=== PATIENT | female | born 1970 | race Caucasian/White ===

== ENCOUNTER 2016-08-25 16:22 | Emergency (ER) | payer OTHER ==
--- NOTE | 2016-08-25 16:31 | UCPHY ---
H & P Patient Type: New HPI/ROS: HPI CHIEF COMPLAINT: Hypertension, headache, nausea HISTORY OF PRESENT ILLNESS: This patient very pleasant 45-year-old female significant past medical history for multiple abdominal surgeries from trauma, GERD, remote history of hypertension however does not take any blood pressure medication given she had a weight loss, weight loss and no longer takes blood pressure medication. She presents urgent care after she had a EGD earlier. Reason for presentation is hypertension. Patient was seen by her primary care doctor earlier today she had a documented blood pressure 120s /80s there. This is a 9:00 a.m. appointment she has make an appointment due to intermittent nighttime headaches. She was given a p.r.n. headache medication which she did not take. She then went to her EGD appointment at 3 o'clock she had a successful EGD but was noted that she was hypertensive pre procedure and worsening hypertension after procedure. It Is documented a blood pressure was in the 190s/120s diastolic. Patient denies chest pain or shortness of breath she does complain of a headache. She does tell me that she is very hungry she has been fasting all day for the EGD. She does have nausea. She denies fever, neck pain, chest pain, shortness of breath, abdominal pain. Of note upon arrival here in the Urgent Care blood pressure is 170 systolic over 110 diastolic. She is telling me she is very hungry. She has a frontal throbbing headache. Normal neurological exam Past Medical History: GERD, headaches Past Surgical History: Multiple abdominal surgeries including cholecystectomy, appendectomy, splenic surgery due to trauma, bowel removal due to trauma Social History: Denies daily drug use alcohol tobacco Family History: Noncontributory ROS REVIEW OF SYSTEMS: A comprehensive 10 point review of systems is otherwise negative aside from elements mentioned in the history of present illness. Exam Constitutional appears well nontoxic triage nursing summary reviewed, vital signs reviewed, awake/alert. Vital signs reviewed hypertensive. Eyes normal conjunctivae and sclera, EOMI, PERRLA. HENT normal inspection, atraumatic, moist mucus membranes, no epistaxis, neck supple/ no meningismus, no raccoon eyes. Respiratory clear to auscultation bilaterally, normal breath sounds, no respiratory distress, no wheezing. Cardiovascular rate normal, regular rhythm, no murmur, no edema, distal pulses normal. Gastrointestinal soft, non-tender, no rebound, no guarding, normal bowel sounds, no distension, no pulsatile mass. Genitourinary no CVA tenderness. Musculoskeletal no midline vertebral tenderness, full range of motion, no calf swelling, no tenderness of extremities, no meningismus, good pulses, neurovascularly intact. Skin pink, warm, & dry, no rash, skin atraumatic. Neurologic awake, alert and oriented x 3, AAOx3, moves all 4 extremities equally, motor intact, sensory intact, CN II-XII intact, normal cerebellar, normal vision, normal speech. Psychiatric normal mood/affect. Heme/Lymph/Immune no lymphadenopathy. Differential Diagnosis: Includes but is not limited to in a particular order hypertensive urgency hypertensive emergency, dehydration, fasting causing headache causing hypertension, medication adverse effect. Medical Decision Making: Plan for this patient IV will be established be gently hydrated with IV fluids, I will allow her to eat as she has been fasting all day and has a headache this may be contributing to her hypertension, she will have a CT scan of her head to make sure she does not have an acute bleed leading to headache leading to hypertension. Check blood work including kidney function. Placed on full equipment monitor phototypesetting, troponin, EKG. Re-evaluation: EKG interpretation by me on record in [facility] system. Impression time of EKG 1646, this is sinus rhythm rate of 82, no acute ischemic changes specifically no ST elevation, ST depression, T-wave abnormalities. Prolonged intervals. Unremarkable EKG. 3: Re-evaluation at this time patient is feeling better. Blood pressure has improved. Having ongoing nausea from EGD. Repeat Zofran has been order, 2nd IV fluid bolus. No chest pain. Headache improved. CT scan of the head without IV contrast The results of the study are negative for acute intracranial abnormality specifically no bleed The study was read by Dr. Jonathan Bansal I viewed the images myself on the PACS system. 9: Re-evaluation at this time. She is feeling better however having ongoing nausea. She has received a mg total IV Zofran. Phenergan is not available. I have ordered her 10 mg IV Reglan 50 mg IV Benadryl. She is getting 2nd L fluid at this time. No active vomiting. Headache is improved. Unremarkable neuro exam. Blood pressure is improving currently 159/104. 2027: re-evaluation this time this patient feels much better she was requesting be discharged home. Did recommend she takes close monitor her blood pressure this next week. Return to Urgent Care emergency room she develops any worsening symptoms including chest pain, shortness of breath, headache. Stay well-hydrated. I do recommend also she follows up with the primary care doctor and gets restarted on her hypertension medication if she consistently has high blood pressure. Repeat troponin negative. Patient agreeable for discharge feels well requesting go home. Source: Patient - Family History Significant Family History: No pertinent family hx Constitutional: Initial Vital Signs Temperature (C) 36.3 C 08/25/16 16:36 Heart Rate 87 08/25/16 16:36 Respiratory Rate 18 08/25/16 16:36 Blood Pressure 167/104 H 08/25/16 16:36 O2 Sat (%) 93 08/25/16 16:36 O2 Delivery Mode Room Air Allergies/Adverse Reactions: No Known Allergies Allergy (Unverified 09/07/10 21:29) Home Medications: Medication Instructions Recorded Bupropion HCl 08/25/16 DEXILANT 08/25/16 Medical Decision Making - Data Points Laboratory Results: Laboratory Results 08/25/16 17:00 08/25/16 17:00 08/25/16 08/25/16 08/25/16 19:50 17:00 17:00 WBC RBC Hgb Hct MCV MCH MCHC RDW Plt Count MPV Neut % (Auto) Lymph % (Auto) [place] % (Auto) Eos % (Auto) Baso % (Auto) Nucleat RBC Rel Count Absolute Neuts (auto) Absolute Lymphs (auto) Absolute Monos (auto) Absolute Eos (auto) Absolute Basos (auto) Absolute Nucleated RBC Immature Gran % Immature Gran # PT 12.4 SEC SEC (12.0-15.0) INR 0.95 (0.83-1.16) APTT 30.3 SEC SEC (23.0-38.0) Sodium 140 mEq/L mEq/L (134-144) Potassium 3.5 mEq/L mEq/L (3.5-5.2) Chloride 102 mEq/L mEq/L (97-110) Carbon Dioxide 23 mEq/l mEq/l (22-31) Anion Gap 15 mEq/L mEq/L (8-16) BUN 10 mg/dL mg/dL (7-23) Creatinine 0.7 mg/dL mg/dL (0.6-1.0) Estimated GFR > 60 Glucose 86 mg/dL mg/dL (70-100) Calcium 9.0 mg/dL mg/dL (8.5-10.4) Magnesium 1.9 mg/dL mg/dL (1.6-2.3) Total Bilirubin 0.8 mg/dL mg/dL (0.1-1.4) Conjugated Bilirubin 0.2 mg/dL mg/dL (0.0-0.5) Unconjugated Bilirubin 0.6 mg/dL mg/dL (0.0-1.1) AST 20 IU/L IU/L (14-46) ALT 34 IU/L IU/L (9-52) Alkaline Phosphatase 76 IU/L IU/L (38-126) Troponin I < 0.012 ng/mL ng/mL < 0.012 ng/mL ng/mL (0-0.034) (0-0.034) NT-Pro-B Natriuret Pep 39 pg/mL pg/mL (0-125) Total Protein 7.6 g/dL g/dL (6.3-8.2) Albumin 3.9 g/dL g/dL (3.5-5.0) Lipase 74.0 IU/L IU/L (23-300) 08/25/16 17:00 WBC 8.53 10^3/uL 10^3/uL (3.80-9.50) RBC 4.85 10^6/uL 10^6/uL (4.18-5.33) Hgb 14.6 g/dL g/dL (12.6-16.3) Hct 42.0 % % (38.0-47.0) MCV 86.6 fL fL (81.5-99.8) MCH 30.1 pg pg (27.9-34.1) MCHC 34.8 g/dL g/dL (32.4-36.7) RDW 13.9 % % (11.5-15.2) Plt Count 237 10^3/uL 10^3/uL (150-400) MPV 10.5 fL fL (8.7-11.7) Neut % (Auto) 66.1 % % (39.3-74.2) Lymph % (Auto) 26.3 % % (15.0-45.0) [place] % (Auto) 5.9 % % (4.5-13.0) Eos % (Auto) 0.9 % % (0.6-7.6) Baso % (Auto) 0.4 % % (0.3-1.7) Nucleat RBC Rel Count 0.0 % % (0.0-0.2) Absolute Neuts (auto) 5.65 10^3/uL 10^3/uL (1.70-6.50) Absolute Lymphs (auto) 2.24 10^3/uL 10^3/uL (1.00-3.00) Absolute Monos (auto) 0.50 10^3/uL 10^3/uL (0.30-0.80) Absolute Eos (auto) 0.08 10^3/uL 10^3/uL (0.03-0.40) Absolute Basos (auto) 0.03 10^3/uL 10^3/uL (0.02-0.10) Absolute Nucleated RBC 0.00 10^3/uL 10^3/uL (0-0.01) Immature Gran % 0.4 % % (0.0-1.1) Immature Gran # 0.03 10^3/uL 10^3/uL (0.00-0.10) PT INR APTT Sodium Potassium Chloride Carbon Dioxide Anion Gap BUN Creatinine Estimated GFR Glucose Calcium Magnesium Total Bilirubin Conjugated Bilirubin Unconjugated Bilirubin AST ALT Alkaline Phosphatase Troponin I NT-Pro-B Natriuret Pep Total Protein Albumin Lipase Medications Given: Discontinued Medications Diphenhydramine HCl (Benadryl Injection) 50 mg IVP EDNOW ONE Stop: 08/25/16 19:20 Last Admin: 08/25/16 19:45 Dose: 50 mg Hydromorphone HCl (Dilaudid) 0.5 mg IVP EDNOW ONE Stop: 08/25/16 18:02 Last Admin: 08/25/16 18:43 Dose: 0.5 mg Sodium Chloride (Ns) 1,000 mls @ 0 mls/hr IV ONCE ONE PRN Reason: Wide Open Stop: 08/25/16 16:40 Last Admin: 08/25/16 16:50 Dose: 1,000 mls Sodium Chloride (Ns) 1,000 mls @ 0 mls/hr IV ONCE ONE PRN Reason: Wide Open Stop: 08/25/16 18:02 Last Admin: 08/25/16 18:45 Dose: 1,000 mls Morphine Sulfate (Morphine) 4 mg IVP EDNOW ONE Stop: 08/25/16 16:40 Last Admin: 08/25/16 16:52 Dose: 4 mg Ondansetron HCl (Zofran) 4 mg IVP EDNOW ONE Stop: 08/25/16 16:40 Last Admin: 08/25/16 16:51 Dose: 4 mg Ondansetron HCl (Zofran) 4 mg IVP EDNOW ONE Stop: 08/25/16 18:02 Last Admin: 08/25/16 18:42 Dose: 4 mg Departure - Departure Disposition: Home, Routine, Self-Care Clinical Impression: Nausea Hypertension Qualifiers: Hypertension type: unspecified secondary hypertension Qualified Code(s): I15.9 - Secondary hypertension, unspecified Condition: Good Instructions: Hypertension (ED) Additional Instructions: 1. Make sure to keep a blood pressure log take her blood pressure twice daily once the morning once at night. 2. Please follow up with your primary care doctor about her blood pressure. 3. return to the urgent care or emergency room if he develops any worsening symptoms questions or concerns. Referrals: ROJAS LINDSEY [Other] - As per Instructions - PQRS PQRS Measurement: n/a
[2016-08-25] MEDS ORDERED: NS 1,000 ML IV ONE ×2 (16:39→18:01)
[2016-08-25] MEDS ORDERED: ONDANSETRON 4 MG/2 ML VIAL IVP ONE ×2 (16:39→18:01)
[2016-08-25 16:40] VITALS: TEMP 97.3
--- NOTE | 2016-08-25 16:49 | CPEKG ---
Heart Rate: 82 RR Interval: 732 P-R Interval: 176 QRSD Interval: 84 QT Interval: 396 QTC Interval: 463 P [place]: 13 QRS [place]: -29 T Wave [place]: 11 EKG Severity - OTHERWISE NORMAL ECG - EKG Impression: SINUS RHYTHM EKG Impression: BORDERLINE LEFT AXIS DEVIATION Electronically Signed By: Azar Solorzano 26-Aug-2016 08:58:12
[2016-08-25 17:10] LABS: % IMMATURE GRANULYOCYTES 0.4 % (0.0-1.1); ABSOLUTE IMMATURE GRANULOCYTES 0.03 10^3/uL (0.00-0.10); ADD DIFF? NO; ADD MORPH? NO; ADD SCAN? NO; ATYPICAL LYMPHOCYTE FLAG 0 (0-99); FRAGMENT RBC FLAG 0 (0-99); HEMOGLOBIN 14.6 g/dL (12.6-16.3); LEFT SHIFT FLG 0 (0-99); LIPEMIA HEMOLYSIS FLAG 90 (0-99); MEAN CELL HEMOGLOBIN 30.1 pg (27.9-34.1); MEAN CELL HEMOGLOBIN CONCENTR. 34.8 g/dL (32.4-36.7); MEAN CELL VOLUME 86.6 fL (81.5-99.8); MEAN PLATELET VOLUME 10.5 fL (8.7-11.7); PLATELET CLUMPS FLAG 0 (0-99); PLATELET COUNT 237 10^3/uL (150-400); RED BLOOD CELL COUNT 4.85 10^6/uL (4.18-5.33); RED CELL DISTRIBUTION WIDTH 13.9 % (11.5-15.2)
[2016-08-25 17:21] LABS: INR 0.95 (0.83-1.16)
[2016-08-25 17:22] LABS: APTT 30.3 SEC (23.0-38.0); PROTIME(PATIENT) 12.4 SEC (12.0-15.0)
[2016-08-25 17:27] LABS: ALANINE AMINOTRANSFERASE 34 IU/L (9-52); ALBUMIN 3.9 g/dL (3.5-5.0); ALKALINE PHOSPHATASE 76 IU/L (38-126); ANION GAP 15 mEq/L (8-16); ASPARTATE AMINOTRANSFERASE 20 IU/L (14-46); BILIRUBIN,TOTAL 0.8 mg/dL (0.1-1.4); BILIRUBIN-CONJUGATED 0.2 mg/dL (0.0-0.5); BILIRUBIN-UNCONJUGATED 0.6 mg/dL (0.0-1.1); CARBON DIOXIDE 23 mEq/l (22-31); CHLORIDE 102 mEq/L (97-110); CREATININE 0.7 mg/dL (0.6-1.0); GLOMERULAR FILTRATION RATE > 60; GLUCOSE 86 mg/dL (70-100); MAGNESIUM 1.9 mg/dL (1.6-2.3); POTASSIUM 3.5 mEq/L (3.5-5.2); SODIUM 140 mEq/L (134-144); TOTAL PROTEIN 7.6 g/dL (6.3-8.2)
[2016-08-25 17:36] LABS: TROPONIN I < 0.012 ng/mL (0-0.034)
[2016-08-25] MEDS ORDERED: HYDROmorphONE/DILAUDID 1 MG/ML SYR IVP ONE (18:01)
[2016-08-25] MEDS ORDERED: METOCLOPRAMIDE 10 MG/2 ML VIAL IVP ONE (19:19)
[2016-08-26] VITALS: BP 167/108; PULSE 80; RESP 16; O2SAT 94
== END 2016-08-25 20:45 | disposition home or self-care (01) ==
LOC: CED 16:22
DX: I15.9 Secondary hypertension, unspecified (principal); R51 Headache; R11.0 Nausea; K21.9 Gastro-esophageal reflux disease without esophagitis
CPT/HCPCS: 70450-PO; 80048-PO; 80076-PO; 83690-PO; 83735-PO; 83880-PO; 84484-PO; 85025-PO; 85610-PO; 85730-PO; 93010-PO; 96361-PO; 96374-PO; 96375-PO; 96376-PO; 99205-PO; G0463-PO; J1170; J1200; J2405; J2765

== ENCOUNTER → 2016-09-16 | Outpatient (CLI) | payer OTHER | LOC: FIMAGING 08:15 | PROVIDERS: ATTEND Physician Assistant | DX: R10.13 Epigastric pain (principal) ==